=== PATIENT | male | born 1970 | race Caucasian/White ===

== ENCOUNTER 2016-12-03 17:26 | Emergency (ER) | payer MEDICARE, MEDICAID ==
[~2016-12-03] VITALS: Ht 182.9 cm; Wt 100.0 kg
[2016-12-03 17:35] VITALS: BP 115/81; TEMP 97
[2016-12-03] MEDS ORDERED: NORCO 325 MG-7.1 TAB PO (19:46)
[2016-12-03 20:02] VITALS: PULSE 77
[2016-12-04] MEDS ORDERED: COUMADIN 1MG1 MG/TAB PO (02:15)
== END 2016-12-03 20:05 | disposition home or self-care (01) ==
LOC: COL.ER 17:26
DX: S52.591A Other fractures of lower end of right radius, initial encounter for closed fracture (principal); S52.611A Displaced fracture of right ulna styloid process, initial encounter for closed fracture; W18.2XXA Fall in (into) shower or empty bathtub, initial encounter; Y93.E1 Activity, personal bathing and showering; Y92.002 Bathroom of unspecified non-institutional (private) residence as the place of occurrence of the external cause; Z95.2 Presence of prosthetic heart valve; Z79.01 Long term (current) use of anticoagulants; F17.210 Nicotine dependence, cigarettes, uncomplicated; S00.81XA Abrasion of other part of head, initial encounter
CPT/HCPCS: J1170

== ENCOUNTER 2016-12-19 18:53 | Emergency (ER) | payer MEDICARE, MEDICAID ==
[~2016-12-19] VITALS: Ht 182.9 cm; Wt 100.0 kg
[~2016-12-19 18:53] MED LIST: COUMADIN 1MG1 MG/TAB PO; NORCO 325 MG-7.1 TAB PO
[2016-12-19 18:57] VITALS: BP 125/89; TEMP 98.8
[2016-12-19] MEDS ORDERED: COREG 6.256.25 MG/TA PO (19:00)
[2016-12-19] MEDS ORDERED: ZESTRIL 20MG TA20 MG PO (19:00)
[2016-12-19] MEDS ORDERED: NEURONTIN100 MG/CAP PO (19:01)
[2016-12-19] MEDS ORDERED: LASIX 40MG TABL40 MG PO (19:01)
[2016-12-19] MEDS ORDERED: K-TAB20 (19:02)
[2016-12-19 19:24] LABS: ADD PATHOLOGY DIFF REVIEW NO
[2016-12-19 19:29] LABS: HEMATOCRIT 44.1 % (42.0-52.0); MEAN CELL VOLUME 88 fl (80.0-100.0); MEAN CORPUSCULAR HEMOGLOBIN 28 pg (27.0-31.0); MEAN CORPUSCULAR HGB CONC 32 g/dl (33.0-37.0); MEAN PLATELET VOLUME 9.9 fl (7.4-10.4); PLATELET COUNT 276 K/mm3 (130-400); RED BLOOD COUNT 5.01 M/mm3 (4.20-5.60); REDCELL DISTRIBUTION WIDTH-CV 14.8 % (11.5-14.5); WHITE BLOOD COUNT 6.6 K/mm3 (4.8-10.8)
[2016-12-19 19:30] LABS: INR 2.2 (0.8-3.0); PROTHROMBIN TIME 24.6 SECONDS (9.7-12.8)
[2016-12-19 19:51] LABS: BAND 10 % (0-10); EOSINOPHIL 2 % (0-4); NEUTROPHILS 61 % (42.0-75.2); TOTAL CELLS COUNTED 100
[2016-12-19 19:52] LABS: PLATELET ESTIMATE NORMAL (NORMAL)
[2016-12-19 19:53] VITALS: PULSE 78
== END 2016-12-19 19:54 | disposition home or self-care (01) ==
LOC: COL.ER 18:53
PROVIDERS: Family Medicine
DX: G89.18 Other acute postprocedural pain (principal); M79.631 Pain in right forearm; Z95.2 Presence of prosthetic heart valve; Z79.01 Long term (current) use of anticoagulants